=== PATIENT | female | born 1995 | race Caucasian/White ===

== ENCOUNTER 2024-06-10 15:13 | Outpatient (CLI) | payer BC, SELFPAY ==
--- NOTE | ~2024-06-10 | CT_ITS ---
CT sinus wo con Ordering provider: Juanjo Harman M.D. History: . chronic maxillary sinusitis . Comparison: None. Technique: Thin slice Scans CT of the paranasal sinuses was performed with coronal and sagittal refor matted images. No IV contrast. . Automated exposure control and iterative reconstruction technique w ere employed. The dose-length product was 257.01 mGy-cm. Findings: NASAL SEPTUM: midline. OSTEOMEATAL UNITS: Bilaterally patent. NASAL TURBINATES AND NASOPHARYNX: Normal. Left middle turbinate idalmis bullosa. PARANASAL SINUSES: Left maxillary sinus disease. Prominence of the last tooth in the maxillary sinus bases bilaterally VISUALIZED MASTOIDS: Normal as visualized. BONES: Normal. SUPERFICIAL SOFT TISSUES/VISUALIZED BRAIN PARENCHYMA: Normal. IMPRESSION: Left maxillary sinus disease. Prominent teeth in the maxillary sinuses. Reviewed, dictated and finalized at location A. [employer]
== END 2024-06-10 15:14 | disposition home or self-care (01) ==
PROVIDERS: PCP Internal Medicine Infectious Disease; Visit Provider Otolaryngology
DX: J32.0 Chronic maxillary sinusitis (principal); M26.01 Maxillary hyperplasia; H81.10 Benign paroxysmal vertigo, unspecified ear
CPT/HCPCS: 70486